=== PATIENT | male | born 1950 | race Caucasian/White ===

== ENCOUNTER 2022-03-12 09:30 | Outpatient (CLI) | payer MEDICARE ==
[2022-03-12 18:41] LABS: SARS-CoV-2 PCR by NAA Not Detected (NotDetected)
== END 2022-03-12 09:31 | disposition home or self-care (01) ==
LOC: LABBT 09:30
PROVIDERS: ATTEND Neurological Surgery
DX: Z01.818 Encounter for other preprocedural examination (principal); M48.061 Spinal stenosis, lumbar region without neurogenic claudication; Z20.822 Contact with and (suspected) exposure to COVID-19
CPT/HCPCS: 93005; U0003; U0005; 93010

== ENCOUNTER 2022-03-17 06:23 | Day surgery (SDC) | payer MEDICARE ==
[2022-03-16 09:34] VITALS: BMI 32.8
[2022-03-17] MEDS ORDERED: Thrombin 5000 UNITS/5 ML VIAL ONE (06:49)
[2022-03-17] MEDS ORDERED: Bupivacaine PF 0.5% 30 ML VIAL ONE (06:49)
[2022-03-17] MEDS ORDERED: EPINEPHrine 1 MG/ML AMP ONE (06:49)
[2022-03-17] MEDS ORDERED: fentaNYL Citrate/PF 100 MCG/2 ML SYRINGE ONE (06:53)
[2022-03-17] MEDS ORDERED: Lidocaine 2% Jelly 5 ML TUBE ONE (06:53)
[2022-03-17] MEDS ORDERED: Sodium Chloride 0.9% 100 ML ONE ×2 (07:23→11:58)
[2022-03-17] MEDS ORDERED: cefOXitin 2 GM VIAL ONE (07:23)
[2022-03-17] MEDS ORDERED: Promethazine HCl 25 MG/ML VIAL IVPB PRN (09:30)
[2022-03-17] MEDS ORDERED: Ondansetron HCl/PF 4 MG/2 ML Vial IVP PRN (09:30)
[2022-03-17] MEDS ORDERED: Promethazine HCl 25 MG/ML VIAL IM PRN (09:30)
[2022-03-17] MEDS ORDERED: Tamsulosin HCl 0.4 MG CAP ONE (09:45)
[2022-03-17] MEDS ORDERED: Fentanyl 100 MCG/2 ML VIAL ONE (09:56)
[2022-03-17] MEDS ORDERED: HYDROcodone/Acetaminophen 5/325 mg Tablet ONE (11:03)
[2022-03-17] MEDS ORDERED: CEFAZOLIN 2 GM VIAL ONE (11:58)
[2022-03-17] MEDS ORDERED: Ondansetron PF 4 MG/2 ML Vial ONE (13:08)
[2022-03-17] MEDS ORDERED: Promethazine HCl 25 MG/ML VIAL ONE (15:41)
== END 2022-03-17 17:10 | disposition home or self-care (01) ==
LOC: SDC 06:23
PROVIDERS: ATTEND Neurological Surgery
PROC: 01NB0ZZ Release Lumbar Nerve, Open Approach (ICD-10-PCS; principal; 2022-03-17)
DX: M48.062 Spinal stenosis, lumbar region with neurogenic claudication (principal); I10 Essential (primary) hypertension; E78.5 Hyperlipidemia, unspecified; G89.4 Chronic pain syndrome; M19.90 Unspecified osteoarthritis, unspecified site; M10.9 Gout, unspecified; E66.9 Obesity, unspecified; Z68.32 Body mass index [BMI] 32.0-32.9, adult; Z79.899 Other long term (current) drug therapy
CPT/HCPCS: 76000; J0171; J0694; J2405; J2550; J3010; J3490; S0020